=== PATIENT | female | born 1995 | race Caucasian/White ===

== ENCOUNTER 2016-06-19 15:47 | Emergency (ER) | payer MEDICAID ==
[2016-06-19 16:01] VITALS: BP 147/71
--- NOTE | 2016-06-19 16:13 | UC ---
Throat Pain/Nasal Jun HPI - HPI Summary HPI Summary: L-sided ST starting 2 weeks ago. 5 days ago had diarrhea 6-7 times, 4 days ago vomited at least 10 times and thought she had a fever, since then ST has been much worse. Waking with pain at night. - History of Current Complaint Chief Complaint: UCGeneralIllness Stated Complaint: SORE ON THROAT Time Seen by Provider: 06/19/16 15:59 Hx Obtained From: Patient Hx Last Menstrual Period: 06/06/16 ?: No Onset/Duration: Gradual Onset, Lasting Weeks Severity: Moderate Cough: None Associated Signs & Symptoms: Positive: Fever, Vomiting. Negative: Hoarseness, Sinus Discomfort, Nasal Discharge - Allergies/Home Medications Allergies/Adverse Reactions: Allergies Allergy/AdvReac Type Severity Reaction Status Date / Time Sulfamethoxazole Allergy Severe Hives Verified 04/23/16 16:24 w/Trimethoprim [From Bactrim] Adhesive Tape Allergy Unknown Verified 06/19/16 15:52 Reaction Details PMH/Surg Hx/FS Hx/Imm Hx Previously Healthy: Yes Endocrine History Of: Denies: Diabetes, Thyroid Disease Cardiovascular History Of: Denies: Cardiac Disorders, Hypertension Respiratory History Of: Denies: COPD, Asthma GI/ History Of: Denies: Ulcer - Surgical History Surgical History: None - Family History Known Family History: Positive: Hypertension, Diabetes - Social History Occupation: Employed Part-time Lives: With Family Alcohol Use: None Substance Use Type: None Smoking Status (MU): Former Smoker Have You Smoked in the Last Year: No - Immunization History Most Recent Influenza Vaccination: 03/17/14 Most Recent Tetanus Shot: 06/12/14 Most Recent Pneumonia Vaccination: n/a Review of Systems Constitutional: Chills Skin: Negative Eyes: Negative ENT: Sore Throat Respiratory: Negative Cardiovascular: Negative Gastrointestinal: Vomiting, Diarrhea Genitourinary: Negative Motor: Negative Neurovascular: Negative Musculoskeletal: Negative Neurological: Negative Psychological: Negative All Other Systems Reviewed And Are Negative: Yes Physical Exam Triage Information Reviewed: Yes Appearance: Well-Appearing, No Pain Distress, Well-Nourished Vital Signs: Initial Vital Signs Temp 97.7 F 06/19/16 15:54 Pulse 100 06/19/16 15:54 Resp 16 06/19/16 15:54 BP 147/71 06/19/16 15:54 Pulse Ox 100 06/19/16 15:54 Vital Signs Reviewed: Yes Eye Exam: Normal Eyes: Positive: Conjunctiva Clear ENT: Positive: Hearing grossly normal, Pharyngeal erythema, TMs normal, Tonsillar swelling, Tonsillar exudate, Other: - round lesion L tonsil with necrotic center Dental Exam: Normal Neck exam: Normal Neck: Positive: Supple, Nontender, No Lymphadenopathy Respiratory Exam: Normal Respiratory: Positive: Chest non-tender, Lungs clear, Normal breath sounds, No respiratory distress, No accessory muscle use Cardiovascular: Positive: No Murmur, Tachycardia Musculoskeletal Exam: Normal Neurological Exam: Normal Psychological Exam: Normal Skin Exam: Normal Throat Pain/Nasal Course/Dx - Differential Dx/Diagnosis Provider Diagnoses: tonsillitis Discharge - Discharge Plan Condition: Stable Disposition: HOME Patient Education Materials: Tonsillitis (ED), Mononucleosis (ED) Additional Instructions: As we discussed, I suspect a mononucleosis infection. This is caused by a virus that usually causes painful, swollen tonsils, fever, enlarged lymph nodes, and sometimes a rash. It is actually very common to have a mild course like yours - - many people have evidence of past infection without any memory of being sick. There is no particular treatment other than getting better with time, but if your testing is negative you will need more testing and possible treatment to determine what is going on. Call here on Monday for your lab results. If you are still having pain and your bloodwork does not show mononucleosis, please return for a follow-up visit.
[2016-06-20 10:15] LABS: Hematocrit 42 % (35-47); Hemoglobin 14.2 g/dl (12.0-16.0); Mean Corpuscular HGB Conc 34 g/dl (31-36); Mean Corpuscular Hemoglobin 29 pg (27-31); Mean Corpuscular Volume 85 fL (80-97); Mean Platelet Volume 12 um3 (7.4-10.4); Red Blood Count 4.97 10^6/ul (4.0-5.4); Red Cell Distribution Width 13 % (10.5-15); White Blood Count 10.4 10^3/ul (3.5-10.8)
[2016-06-20 10:28] LABS: Manual Entry Verification AS; Mono Internal Control QC Line Present; Mono Kit Lot# 6070004
[2016-06-20 10:41] LABS: Albumin 4.7 g/dL (3.2-5.2); BUN/Creatinine Ratio 18.8 (8-20); Calcium 9.8 mg/dL (8.6-10.3); EGFR African American 150.6 (>60); EGFR Non-African American 117.1 (>60); Globulin 2.7 g/dL (2-4); Potassium 3.7 mmol/L (3.5-5.0); Total Bilirubin 0.4 mg/dL (0.2-1.0); Total Protein 7.4 g/dL (6.4-8.9)
== END 2016-06-19 16:40 | disposition home or self-care (01) ==
LOC: UCEAST 15:47
DX: J03.90 Acute tonsillitis, unspecified (principal); Z88.2 Allergy status to sulfonamides; Z87.891 Personal history of nicotine dependence
CPT/HCPCS: 36415; 80053; 85025; 86308; 87651; 99211; G0463

== ENCOUNTER 2016-06-21 13:57 | Emergency (ER) | payer MEDICAID ==
--- NOTE | 2016-06-21 14:41 | UC ---
Throat Pain/Nasal Jun HPI - HPI Summary HPI Summary: Seen in for 2.[address] 2 days ago. RST negative, blood drawn and negative for mono, WBC 10.4. Was instructed to come back for further testing/ treatment if negative for mononucleosis. No new fevers, throat still hurting. - History of Current Complaint Chief Complaint: UCRespiratory Stated Complaint: THROAT Time Seen by Provider: 06/21/16 14:20 Hx Obtained From: Patient Hx Last Menstrual Period: 06/05/16 ?: No Onset/Duration: Gradual Onset, Lasting Weeks Severity: Moderate Cough: None Associated Signs & Symptoms: Positive: Vomiting. Negative: Fever - Allergies/Home Medications Allergies/Adverse Reactions: Allergies Allergy/AdvReac Type Severity Reaction Status Date / Time Sulfamethoxazole Allergy Severe Hives Verified 04/23/16 16:24 w/Trimethoprim [From Bactrim] Adhesive Tape Allergy Unknown Verified 06/19/16 15:52 Reaction Details PMH/Surg Hx/FS Hx/Imm Hx Endocrine History Of: Denies: Diabetes, Thyroid Disease Cardiovascular History Of: Denies: Cardiac Disorders, Hypertension Respiratory History Of: Denies: COPD, Asthma GI/ History Of: Denies: Ulcer - Surgical History Surgical History: None - Family History Known Family History: Positive: Hypertension, Diabetes - Social History Occupation: Employed Part-time Alcohol Use: Rare Substance Use Type: None Smoking Status (MU): Former Smoker Have You Smoked in the Last Year: No - Immunization History Most Recent Influenza Vaccination: 03/17/14 Most Recent Tetanus Shot: 06/12/14 Most Recent Pneumonia Vaccination: n/a Review of Systems Constitutional: Negative Skin: Negative Eyes: Negative ENT: Sore Throat Respiratory: Negative Cardiovascular: Negative Gastrointestinal: Vomiting - resolved, Diarrhea Genitourinary: Negative Motor: Negative Neurovascular: Negative Musculoskeletal: Negative Neurological: Negative Psychological: Negative All Other Systems Reviewed And Are Negative: Yes Physical Exam Triage Information Reviewed: Yes Appearance: Well-Appearing, No Pain Distress, Well-Nourished Vital Signs: Initial Vital Signs Temp 98.5 F 06/21/16 14:14 Pulse 88 06/21/16 14:14 Resp 18 06/21/16 14:14 BP 117/77 06/21/16 14:14 Pulse Ox 100 06/21/16 14:14 Vital Signs Reviewed: Yes Eye Exam: Normal Eyes: Positive: Conjunctiva Clear ENT: Positive: Tonsillar swelling, Tonsillar exudate - Large L-sided round tonsillar lesion still present with interval improvement, no longer black in center. Dental Exam: Normal Neck: Positive: Supple, Enlarged Nodes @ - tonsillar Respiratory Exam: Normal Respiratory: Positive: Chest non-tender, Lungs clear, Normal breath sounds, No respiratory distress, No accessory muscle use Cardiovascular Exam: Normal Cardiovascular: Positive: RRR, No Murmur Musculoskeletal Exam: Normal Neurological Exam: Normal Psychological Exam: Normal Skin Exam: Normal Throat Pain/Nasal Course/Dx - Differential Dx/Diagnosis Provider Diagnoses: tonsillitis Discharge - Discharge Plan Condition: Stable Disposition: HOME Prescriptions: Amoxicillin/Clavulanate TAB* [Augmentin TAB 875*] 875 mg PO BID #14 tab Patient Education Materials: Tonsillitis (ED) Referrals: Kenneth Werner MD [Medical Doctor] - 1 Week Additional Instructions: As we discussed, it is not common to have tonsillitis that is not mononucleosis go on for 3 weeks. We will try a course of antibiotics; throat culture pending.
[2016-06-21 15:17] VITALS: BP 117/77
== END 2016-06-21 14:45 | disposition home or self-care (01) ==
LOC: UCEAST 13:57
DX: J03.90 Acute tonsillitis, unspecified (principal); Z88.2 Allergy status to sulfonamides; Z87.891 Personal history of nicotine dependence
CPT/HCPCS: 87070; 99211; 99212; G0463

== ENCOUNTER 2016-08-14 20:29 | Emergency (ER) | payer MEDICAID ==
[2016-08-14 21:37] VITALS: BP 125/78
--- NOTE | 2016-08-14 21:45 | UC ---
Throat Pain/Nasal Jun HPI - HPI Summary HPI Summary: Pt has history of "abscess" in left tonsil. Pt has been following with DR. Dinero. Pt reprots that over last few days the "abscess has been worsening and is difficult to swallow. - History of Current Complaint Chief Complaint: UC Stated Complaint: ABCESS IN THROAT Time Seen by Provider: 08/14/16 21:31 Hx Obtained From: Patient Hx Last Menstrual Period: 08/03/16 ?: No Onset/Duration: Gradual Onset, Lasting Weeks, Still Present Severity: Moderate - Allergies/Home Medications Allergies/Adverse Reactions: Allergies Allergy/AdvReac Type Severity Reaction Status Date / Time Sulfamethoxazole Allergy Severe Hives Verified 08/14/16 21:37 w/Trimethoprim [From Bactrim] Adhesive Tape Allergy Unknown Verified 08/14/16 21:37 Reaction Details Home Medications: Home Medications Citalopram TAB* [Celexa TAB*] 1 DAILY 08/14/16 [History] PMH/Surg Hx/FS Hx/Imm Hx Previously Healthy: Yes Endocrine History Of: Denies: Diabetes, Thyroid Disease Cardiovascular History Of: Denies: Cardiac Disorders, Hypertension Respiratory History Of: Denies: COPD, Asthma GI/ History Of: Denies: Ulcer - Surgical History Surgical History: None - Family History Known Family History: Positive: Hypertension, Diabetes - Social History Alcohol Use: None Substance Use Type: None Smoking Status (MU): Current Some Day Smoker Have You Smoked in the Last Year: No - Immunization History Most Recent Influenza Vaccination: 03/17/14 Most Recent Tetanus Shot: 06/12/14 Most Recent Pneumonia Vaccination: n/a Review of Systems Constitutional: Negative Skin: Negative Eyes: Negative ENT: Sore Throat Respiratory: Negative Cardiovascular: Negative Gastrointestinal: Negative Genitourinary: Negative Motor: Negative Neurovascular: Negative Musculoskeletal: Negative Neurological: Negative Psychological: Negative All Other Systems Reviewed And Are Negative: Yes Physical Exam Triage Information Reviewed: Yes Appearance: Well-Appearing Vital Signs: Initial Vital Signs Temp 99.3 F 08/14/16 21:30 Pulse 89 08/14/16 21:30 Resp 18 08/14/16 21:30 BP 125/78 08/14/16 21:30 Pulse Ox 100 08/14/16 21:30 Vital Signs Reviewed: Yes Eye Exam: Normal ENT: Positive: Tonsillar swelling, Tonsillar exudate - left tonsil Neck exam: Other Neck: Positive: Enlarged Nodes @ - left submandibular Respiratory Exam: Normal Cardiovascular Exam: Normal Musculoskeletal Exam: Normal Neurological Exam: Normal Psychological Exam: Normal Skin Exam: Normal Throat Pain/Nasal Course/Dx - Course Course Of Treatment: I discussed with the pt the need to follow up with Dr. Navarrete as sooon as possible. Pt verbalized understanding and agreed to plan of care. - Differential Dx/Diagnosis Differential Diagnosis/HQI/PQRI: Pharyngitis, Tonsillitis, URI Provider Diagnoses: tonsillitis Discharge - Discharge Plan Condition: Stable Disposition: HOME Prescriptions: Lidocaine 2% VISCOUS* [Xylocaine 2% Viscous*] 15 ml SWISH SPIT Q4H PRN #1 btl PRN Reason: Pain Penicillin VK TAB 500 MG(NF) [Penicillin VK 500 mg Tab(NF)] 500 mg PO QID #28 tab Patient Education Materials: Pharyngitis (ED) Referrals: Bar ZAMAN,Christopher Velázquez [Primary Care Provider] - Additional Instructions: Please follow up with your PCP, Dr. Dinero ,to continue care regarding your ongoing complaint. It is important to have continuity of care.
[2016-08-14] MEDS ORDERED: Lidocaine 2% VISCOUS* 15 ML UDC PO ONE (21:56)
[2016-08-14] MEDS ORDERED: Penicillin VK TAB* 250 MG PO ONE (21:56)
== END 2016-08-14 22:16 | disposition home or self-care (01) ==
LOC: UCEAST 20:29
DX: J03.90 Acute tonsillitis, unspecified (principal); Z88.1 Allergy status to other antibiotic agents; F17.200 Nicotine dependence, unspecified, uncomplicated
CPT/HCPCS: 99212; A9270-GY; G0463

== ENCOUNTER 2018-08-17 10:24 | Emergency (ER) | payer SELFPAY ==
[2018-08-17 11:00] VITALS: BP 126/72
--- NOTE | 2018-08-17 11:52 | UC ---
Throat Pain/Nasal Jun HPI - HPI Summary HPI Summary: [address] AND PAIN WITH SWALLOWING. GETTING WORSE. HAS SUBJECTIVE FEVER AND CHILLS. THROAT FEELS SWOLLEN. NO COUGH. 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 Hx Last Menstrual Period: 08/03/16 Onset/Duration: Gradual Onset, Lasting Days, Still Present Severity: Moderate Pain Intensity: 7 Pain Scale Used: 0-10 Numeric Cough: None Associated Signs & Symptoms: Positive: Fever - Allergies/Home Medications Allergies/Adverse Reactions: Allergies Allergy/AdvReac Type Severity Reaction Status Date / Time Adhesive Tape Allergy Unknown Verified 08/17/18 11:00 Reaction Details Sulfa (Sulfonamide Allergy Hives Verified 08/17/18 11:00 Antibiotics) Home Medications: Home Medications Ibuprofen 800 mg PO 08/17/18 [History] PMH/Surg Hx/FS Hx/Imm Hx Previously Healthy: Yes - Surgical History Surgical History: None - Family History Known Family History: Positive: Hypertension, Diabetes - Social History Alcohol Use: Occasionally Substance Use Type: None Smoking Status (MU): Current Some Day Smoker Have You Smoked in the Last Year: No - Immunization History Most Recent Influenza Vaccination: 03/17/14 Most Recent Tetanus Shot: 06/12/14 Most Recent Pneumonia Vaccination: n/a Review of Systems All Other Systems Reviewed And Are Negative: Yes Constitutional: Positive: Fever, Chills, Fatigue ENT: Positive: Sore Throat Respiratory: Positive: Negative Cardiovascular: Positive: Negative Gastrointestinal: Positive: Negative Physical Exam Triage Information Reviewed: Yes Appearance: Well-Nourished, Pain Distress - MILD Vital Signs: Initial Vital Signs Temp 98.6 F 08/17/18 10:56 Pulse 93 08/17/18 10:56 Resp 18 08/17/18 10:56 BP 126/72 08/17/18 10:56 Pulse Ox 100 08/17/18 10:56 Laboratory Tests 08/17/18 11:26 Group A Strep Rapid Positive A Vital Signs Reviewed: Yes Eyes: Positive: Conjunctiva Clear ENT: Positive: Hearing grossly normal, Pharyngeal erythema, TMs normal, Tonsillar swelling, Hoarse voice Neck: Positive: Supple, Tenderness @ - SPFL CERVICAL LAD, Enlarged Nodes @ - SPFL CERVICAL LAD Respiratory Exam: Normal Cardiovascular Exam: Normal Abdomen Description: Positive: Soft Musculoskeletal: Positive: No Edema Neurological: Positive: Alert Psychological: Positive: Age Appropriate Behavior Skin: Negative: Rashes Throat Pain/Nasal Course/Dx - Differential Dx/Diagnosis Provider Diagnosis: Strep pharyngitis Discharge - Sign-Out/Discharge Documenting (check all that apply): Patient Departure All imaging exams completed and their final reports reviewed: No Studies - Discharge Plan Condition: Stable Disposition: HOME Prescriptions: Amoxicillin PO (*) [Amoxicillin 400 MG/5 ML SUSP*] 12.5 ml PO DAILY #125 ml Patient Education Materials: Strep Throat (ED) Forms: *Work Release Referrals: Bar ZAMAN,Christopher Velázquez [Primary Care Provider] - If Needed Additional Instructions: STREP POSITIVE. TAKE ANTIBIOTICS FOR THE FULL 10 DAYS. OTC CHLORASEPTIC OR CEPACOL LOZENGES AND/OR IBUPROFEN FOR SORE THROAT NEEDED ONCE SYMPTOMS RESOLVED - NEW TOOTHBRUSH DO NOT SHARE FOOD, DRINK, UTENSILS - Billing Disposition and Condition Condition: STABLE Disposition: Home
== END 2018-08-17 11:53 | disposition home or self-care (01) ==
LOC: UCEAST 10:24
DX: J02.0 Streptococcal pharyngitis (principal); F17.200 Nicotine dependence, unspecified, uncomplicated; Z91.09 Other allergy status, other than to drugs and biological substances; Z88.2 Allergy status to sulfonamides
CPT/HCPCS: 87651; 99212; G0463

== ENCOUNTER 2019-07-02 17:53 | Emergency (ER) | payer BC ==
[2019-07-02 18:25] VITALS: BP 129/78
--- NOTE | 2019-07-02 18:48 | UC ---
Throat Pain/Nasal Jun HPI - HPI Summary HPI Summary: 23-year-old female presents with 4 day history of general malaise, fatigue, headache, body aches, nasal congestion, sore throat, and a nonproductive cough. No measured fever however patient reports feeling chilled. She did not receive her flu vaccine this season. Denies ear pain, dysphagia, chest pain, shortness of breath, abdominal pain, nausea, vomiting, or diarrhea. - History of Current Complaint Chief Complaint: UCGeneralIllness Stated Complaint: SORE THROAT Time Seen by Provider: 07/02/19 18:31 Hx Obtained From: Patient Hx Last Menstrual Period: now Pain Intensity: 6 - Allergies/Home Medications Allergies/Adverse Reactions: Allergies Allergy/AdvReac Type Severity Reaction Status Date / Time Adhesive Tape Allergy Unknown Verified 07/02/19 18:26 Reaction Details Sulfa (Sulfonamide Allergy Hives Verified 07/02/19 18:26 Antibiotics) PMH/Surg Hx/FS Hx/Imm Hx Previously Healthy: Yes - Denies significant PMH - Surgical History Surgical History: None - Family History Known Family History: Positive: Hypertension, Diabetes - Social History Occupation: Employed Full-time Lives: With Family Alcohol Use: Rare Substance Use Type: None Smoking Status (MU): Current Some Day Smoker Have You Smoked in the Last Year: No - Immunization History Most Recent Influenza Vaccination: 03/17/14 Most Recent Tetanus Shot: 06/12/14 Most Recent Pneumonia Vaccination: n/a Review of Systems All Other Systems Reviewed And Are Negative: Yes Constitutional: Positive: Chills, Fatigue Skin: Negative: Rash Eyes: Negative: Drainage, Eye Redness ENT: Positive: Sore Throat, Nasal Discharge, Sinus Congestion. Negative: Ear Ache, Sinus Pain/Tenderness Respiratory: Positive: Cough. Negative: Shortness Of Breath Cardiovascular: Negative: Palpitations, Chest Pain Gastrointestinal: Negative: Abdominal Pain, Vomiting, Diarrhea, Nausea Genitourinary: Positive: Negative Musculoskeletal: Positive: Negative Neurological: Positive: Headache Is Patient Immunocompromised?: No Physical Exam - Summary Physical Exam Summary: GENERAL APPEARANCE: Alert and cooperative young adult female who appears to be in no acute distress. EYES: Conjunctiva clear. No drainage. EARS: External auditory canals and tympanic membranes clear, hearing grossly intact. NOSE: Mild to moderate nasal congestion. No nasal discharge. THROAT: Pharyngeal erythema. 2+ tonsils without exudate. Uvula midline. NECK: Neck supple, non-tender without lymphadenopathy. CARDIAC: Normal S1 and S2. No S3, S4 or murmurs. Rhythm is regular. There is no peripheral edema, cyanosis or pallor. Extremities are warm and well perfused. Capillary refill is less than 2 seconds. Peripheral pulses intact. LUNGS: Clear to auscultation without rales, rhonchi, wheezing or diminished breath sounds. Dry, nonproductive cough. ABDOMEN: Positive bowel sounds. Soft, nondistended, nontender. No guarding or rebound. No masses or hepatosplenomegally. MUSKULOSKELETAL: ROM intact to all extremities. No joint erythema or tenderness. Normal muscular development. Normal gait. SKIN: Skin normal color, texture and turgor with no lesions or eruptions. Triage Information Reviewed: Yes Vital Signs: Initial Vital Signs Temp 99.1 F 07/02/19 18:21 Pulse 94 07/02/19 18:21 Resp 18 07/02/19 18:21 BP 129/78 07/02/19 18:21 Pulse Ox 97 07/02/19 18:21 Vital Signs Reviewed: Yes Throat Pain/Nasal Course/Dx - Course Course Of Treatment: 23-year-old female presents with 4 day history of general malaise, fatigue, headache, body aches, nasal congestion, sore throat, and a nonproductive cough. No measured fever however patient reports feeling chilled. She did not receive her flu vaccine this season. Denies ear pain, dysphagia, chest pain, shortness of breath, abdominal pain, nausea, vomiting, or diarrhea. Afebrile. Vital signs stable. Patient had mild to moderate nasal congestion, normal TMs, pharyngeal erythema with 2+ tonsils without exudate, no cervical lymphadenopathy , clear bilateral breath sounds, dry nonproductive cough, and otherwise unremarkable exam. Rapid flu test was positive for influenza B. Rapid strep was positive. Reviewed results with the patient. We discussed that and sitting the duration of her symptoms that it was too late to start Tamiflu therefore recommending symptomatic treatment including Tessalon Perles 1 capsule every 8 hours as needed for cough. We will start her on amoxicillin 100 mg twice a day 10 days for the strep pharyngitis. She is to return here or follow up with primary care in 3-5 days if symptoms are not improving. Anticipatory guidance warning symptoms. The patient. Verbalizes understanding and agrees with plan of care. - Differential Dx/Diagnosis Differential Diagnosis/HQI/PQRI: Mononucleosis, Peritonsillar Abscess, Pharyngitis, Tonsillitis, URI Provider Diagnosis: Strep pharyngitis, Influenza B Discharge ED - Sign-Out/Discharge Documenting (check all that apply): Patient Departure All imaging exams completed and their final reports reviewed: No Studies - Discharge Plan Condition: Stable Disposition: HOME Prescriptions: Amoxicillin PO (*) [Amoxicillin 500 MG CAP*] 500 mg PO BID #20 cap Benzonatate CAP* [Tessalon 100 MG CAP*] 100 mg PO TID PRN #21 cap PRN Reason: Cough Patient Education Materials: Strep Throat (ED), Influenza (ED) Referrals: No Primary Care Phys,NOPCP [Primary Care Provider] - [facility] – [place] [facility] REFERRAL [Outside] Additional Instructions: Your flu test in the clinic today was positive for influenza B. Get plenty of rest. Drink plenty of fluids to avoid dehydration especially if you are running any fever. Take over the counter acetaminophen (Tylenol) or ibuprofen (Advil, Motrin) according to directions as needed for pain or fever. Take Tessalon Perles 1 cap every 8 hours as needed for cough. Your rapid strep test in the clinic today was positive. We will start you on an antibiotic to treat the infection. Start amoxicillin 500 mg 1 capsule twice a day for 10 days. Be sure to complete the entire course even if felling better. After you have been on antibiotics for 3 days, throw out your toothbrush and replace with a new one to prevent reinfection. Drink plenty of fluids to avoid dehydration especially if you are running any fever. Use salt water gargles several times a day. Take over the counter acetaminophen (Tylenol) or ibuprofen (Advil, Motrin) according to directions as needed for pain or fever. You may also use Chloraseptic spray or Cepacol lonzenges according to directions which contain a numbing medication and can provide some temporary relief from your sore throat. Return here or follow up with primary care in 3-5 days if symptoms do not improve. I have provided you with the contact information for the [facility] physician referral service if you need assistance with establishing with a provider. Seek immediate medical attention in the emergency room if you have fever greater than 100.5 F despite taking acetaminophen or ibuprofen, are unable to swallow or develop drooling, are unable to open your mouth fully, are unable to eat or drink, have pain that is not relieved with over the counter pain medication, have any difficulty breathing, or any worsening of symptoms. - Billing Disposition and Condition Condition: STABLE Disposition: Home
[2019-07-03 10:29] LABS: Influenza B Molecular POSITIVE (Negative)
== END 2019-07-02 19:28 | disposition home or self-care (01) ==
LOC: UCEAST 17:53
DX: J10.1 Influenza due to other identified influenza virus with other respiratory manifestations (principal); J02.0 Streptococcal pharyngitis; F17.210 Nicotine dependence, cigarettes, uncomplicated; Z91.09 Other allergy status, other than to drugs and biological substances; Z88.2 Allergy status to sulfonamides
CPT/HCPCS: 87651; 99212; G0463

== ENCOUNTER 2019-07-14 20:09 | Emergency (ER) | payer BC ==
--- NOTE | 2019-07-14 20:37 | UC ---
Skin Complaint HPI - HPI Summary HPI Summary: ;23 year old female with no chronic medical conditions, recent flu/ sickness pas week, presents with raised, red bumps on right thigh/ buttock extending into right groin, down front of leg. painful to touch, red. + drainage in groin. no other complaints, no fever, chills. no prior occurrence. - History of Current Complaint Time Seen by Provider: 07/14/19 20:31 Stated Complaint: RASH Hx Obtained From: Patient Hx Last Menstrual Period: now ?: No Onset/Duration: Sudden Onset, Lasting Days - 2-3 days Skin Exposure Onset/Duration: Days Ago Timing: Constant Onset Severity: Moderate Current Severity: Moderate Pain Scale Used: 0-10 Numeric Location: Discrete Character: Pain, Redness, Raised Aggravating Factor(s): Touch Alleviating Factor(s): Unknown Associated Signs & Symptoms: Positive: Tenderness. Negative: Joint Swelling - Allergy/Home Medications Allergies/Adverse Reactions: Allergies Allergy/AdvReac Type Severity Reaction Status Date / Time Adhesive Tape Allergy Unknown Verified 07/14/19 20:44 Reaction Details Sulfa (Sulfonamide Allergy Hives Verified 07/14/19 20:44 Antibiotics) PMH/Surg Hx/FS Hx/Imm Hx Previously Healthy: Yes - Surgical History Surgical History: None - Family History Known Family History: Positive: Hypertension, Diabetes - Social History Occupation: Employed Full-time Alcohol Use: Rare Substance Use Type: None Smoking Status (MU): Current Some Day Smoker Have You Smoked in the Last Year: No - Immunization History Most Recent Influenza Vaccination: 03/17/14 Most Recent Tetanus Shot: 06/12/14 Most Recent Pneumonia Vaccination: n/a Review of Systems All Other Systems Reviewed And Are Negative: Yes Constitutional: Positive: Negative Skin: Positive: Rash Respiratory: Positive: Negative Musculoskeletal: Positive: Negative Is Patient Immunocompromised?: No Physical Exam Triage Information Reviewed: Yes Appearance: Well-Appearing, No Pain Distress, Well-Nourished Vital Signs Reviewed: Yes Eyes: Positive: Conjunctiva Clear ENT: Positive: Hearing grossly normal Musculoskeletal Exam: Normal Musculoskeletal: Positive: Strength Intact - R hip, knee, ankle normal gait Neurological Exam: Normal Neurological: Positive: Alert Psychological Exam: Normal Psychological: Positive: Normal Response To Family Skin: Positive: Rashes - vesicular rash, grouped lesions, erythematous base from lumbar vertebra extending in ~ L2-3 dermatone to outer hip, inner thigh and right groin. no extension past midling, no other lesions. + TTP, clear drainage with crusting noted in groin lesions. full ROM of hip, knee, ankle R without difficulty. Course/Dx - Course Course Of Treatment: shingles - Valacyclovir three times a day for 7 days - Keep area covered, increase hygiene - Avoid contact with , immunocompromised people, newborns. - follow up with primary physician within 1 week for repeat evaluation - Return with increased pain, fever, difficulty walking. - Diagnoses Provider Diagnosis: Shingles Discharge ED - Sign-Out/Discharge Documenting (check all that apply): Patient Departure All imaging exams completed and their final reports reviewed: No Studies - Discharge Plan Condition: Fair Disposition: HOME Prescriptions: Valacyclovir HCl [Valtrex] 1,000 mg PO TID #21 tablet Patient Education Materials: Shingles (ED) Forms: *Work Release Referrals: No Primary Care Phys,NOPCP [Primary Care Provider] - [facility] [address] [Outside] Additional Instructions: - Valacyclovir three times a day for 7 days - Keep area covered, increase hygiene - Avoid contact with , immunocompromised people, newborns. - follow up with primary physician within 1 week for repeat evaluation - Return with increased pain, fever, difficulty walking. - Billing Disposition and Condition Condition: FAIR Disposition: Home
[2019-07-14 20:44] VITALS: BP 130/71
[2019-07-14] MEDS ORDERED: Acyclovir* 200 MG CAP PO ONE (20:48)
== END 2019-07-14 20:59 | disposition home or self-care (01) ==
LOC: UCEAST 20:09
DX: B02.9 Zoster without complications (principal); Z91.09 Other allergy status, other than to drugs and biological substances; Z88.2 Allergy status to sulfonamides
CPT/HCPCS: 99212; A9270-GY; G0463

== ENCOUNTER 2020-10-01 12:04 | Inpatient (IN) ==
[2020-10-01] MEDS ORDERED: Lactated Ringers 1000 ml BAG 1,000 ML IV ONE ×2 (13:05→22:59)
[2020-10-01] MEDS ORDERED: Buffered Lidocaine 1% SYRIN 1 ml INTRADERM ONE (13:05)
[2020-10-01 14:00] LABS: ABS Basophils 0.1 10^3/ul (0-0.2); ABS Lymphocytes 1.7 10^3/ul (1.0-4.8); ABS Monocytes 0.7 10^3/ul (0-0.8); ABS Neutrophils 5.4 10^3/ul (1.5-7.7); Eosinophil % 0.4 %; Hematocrit 31 % (35-47); Hemoglobin 10.5 g/dL (12.0-16.0); Mean Corpuscular HGB Conc 34 g/dL (31-36); Mean Corpuscular Hemoglobin 28 pg (27-31); Mean Corpuscular Volume 84 fL (80-97); Mean Platelet Volume 11.2 fL (7.4-10.4); Platelet Count 129 10^3/uL (150-450); Red Blood Count 3.76 10^6 /uL (3.70-4.87); Red Cell Distribution Width 13 % (10-15); White Blood Count 7.8 10^3/uL (3.5-10.8)
[2020-10-01 14:18] LABS: Urine Benzodiazepine Screen None Detected (None Detect); Urine Cannabinoids Screen None Detected (None Detect); Urine Opiates Screen None Detected (None Detect)
[2020-10-01] MEDS ORDERED: Oxytocin in LR 20 UNITS/1,000 ML BAG IVPB SCH (15:00)
[2020-10-01] MEDS: Lactated Ringers 1000 ml BAG 1,000 ML IV SCH ×2 (19:59→22:38)
[2020-10-01] MEDS ORDERED: OBEPIDURAL 250 ML EPIDURAL ONE (21:59)
[2020-10-01] MEDS ORDERED: Phenylephrine 40 mcg/mL 10mL (400mcg) SYRINGE IV PUSH PRN ×2 (22:59)
[2020-10-01] MEDS ORDERED: Sodium Citrate/Citric Acid LIQ 15 ML UDC PO PRN (22:59)
[2020-10-01] MEDS ORDERED: Lactated Ringers 1000 ml BAG 500 ML IV PRN ×2 (22:59)
[2020-10-01] MEDS ORDERED: OBEPIDURAL 250 ML EPIDURAL SCH (23:00)
[2020-10-01] MEDS ORDERED: Lactated Ringers 1000 ml BAG 1,000 ML IV SCH ×2 (23:00)
[2020-10-02 00:45] LABS: Urine Appearance Cloudy; Urine Bilirubin Negative (Negative); Urine Blood 1+ (Negative); Urine Color Yellow; Urine Glucose Negative (Negative); Urine Ketones 1+ (Negative); Urine Nitrite Negative (Negative); Urine Protein Negative (Negative); Urine Specific Gravity 1.016 (1.002-1.030); Urine Urobilinogen Negative (Negative)
[2020-10-02 00:57] LABS: Urine Bacteria Absent (Absent); Urine Red Blood Cell Trace(0-2/hpf) (Absent); Urine White Blood Cell Absent (Absent)
[2020-10-02] MEDS ORDERED: Glycerin ADULT 2.4 gm SUPP PR PRN (05:52)
[2020-10-02] MEDS ORDERED: Dibucaine 1% OINT 28.35 GM TUBE PR PRN (05:52)
[2020-10-02] MEDS ORDERED: Witch Hazel PAD JAR TOPICAL PRN (05:52)
[2020-10-02] MEDS ORDERED: Oxytocin in LR 20 UNITS/1,000 ML BAG IVPB SCH (06:00)
[2020-10-02] MEDS ORDERED: Lactated Ringers 1000 ml BAG 1,000 ML IV SCH (06:00)
[2020-10-02] MEDS ORDERED: Lidocaine 1% VIAL 10 MG/ML VIAL ONE (10:36)
[2020-10-03 07:24] LABS: ABS Basophils 0.1 10^3/ul (0-0.2); ABS Eosinophils 0.1 10^3/ul (0-0.6); ABS Lymphocytes 2.1 10^3/ul (1.0-4.8); ABS Monocytes 0.9 10^3/ul (0-0.8); ABS Neutrophils 8.4 10^3/ul (1.5-7.7); Eosinophil % 0.6 %; Hematocrit 26 % (35-47); Hemoglobin 8.7 g/dL (12.0-16.0); Lymphocyte % 18.5 %; Mean Corpuscular HGB Conc 33 g/dL (31-36); Mean Corpuscular Hemoglobin 28 pg (27-31); Mean Corpuscular Volume 84 fL (80-97); Mean Platelet Volume 10.8 fL (7.4-10.4); Platelet Count 107 10^3/uL (150-450); Red Blood Count 3.12 10^6 /uL (3.70-4.87); Red Cell Distribution Width 13 % (10-15); White Blood Count 11.5 10^3/uL (3.5-10.8)
[2020-10-03 08:04] VITALS: BP 111/62
== END 2020-10-03 15:50 | disposition home or self-care (01) | DRG 560 ==
LOC: MCHOBOUT 12:04 → MCHOB 14:03
PROVIDERS: ADMIT Midwife; ATTEND Midwife